=== PATIENT | male | born 1945 | race Caucasian/White ===

== ENCOUNTER 2019-01-03 07:10 | Emergency (ER) | payer MEDICARE ==
[~2019-01-03] VITALS: Ht 185.4 cm; Wt 70.0 kg
[2019-01-03 09:40] VITALS: BP 107/77
[2019-01-03] MEDS ORDERED: HYDROMORPHONE HCL/PF 2MG/ML CPJ IV ONE (11:15)
== END 2019-01-03 11:34 | disposition left against medical advice (07) ==
LOC: ER 07:30
DX: F10.129 Alcohol abuse with intoxication, unspecified (principal); Y90.0 Blood alcohol level of less than 20 mg/100 ml; Z98.890 Other specified postprocedural states; E11.9 Type 2 diabetes mellitus without complications
CPT/HCPCS: 99283; J1170